=== PATIENT | male | born 1985 | race Caucasian/White ===

== ENCOUNTER 2018-03-14 13:42 | Inpatient (IN) | payer SELFPAY ==
--- NOTE | 2018-03-14 13:46 | PDOC ---
History of Present Illness - General History Source: Patient, Significant Other Exam Limitations: No Limitations - History of Present Illness Initial Comments: 03/14/18 14:24 The patient is a 33 year old female with no significant PMH who presents to the emergency department with shortness of breath, fast heart rate, and irregular rhythm with unspecified onset. The patient reports experiencing shortness of breath with associated diaphoresis yesterday night while lying down. He reports he went to Dr. Jorge Schmitt office this morning for evaluation and was told his heart rate was in the 150s and had new atrial fibrillation rhythm. As per Dr. Jorge Trammell, the patient was given beta blockers in the office. The patient notes he had the flu with associated fever about 2 weeks ago. The patient denies cardiac disease history. He denies sick contacts or recent travel. He denies recent dieting or nutritional supplements. The patient denies chest pain, headache and dizziness. Denies fever, chills, nausea, vomit, diarrhea and constipation. Denies dysuria, frequency, urgency and hematuria. Allergies: NKA Past surgical history: None reported. Social history: No reported cigarette, alcohol, or drug use. PCP: Dr. Jorge Trammell Cardio: Dr. iDng <Cody Molina - Last Filed: 03/14/18 14:24> <Miranda Mendoza - Last Filed: 03/14/18 17:37> - General Stated Complaint: Irregular Heart Beat Time Seen by Provider: 03/14/18 13:46 Past History <Cody Molina - Last Filed: 03/14/18 14:24> <Miranda Mendoza - Last Filed: 03/14/18 17:37> - Past Medical History Allergies/Adverse Reactions: Allergies Allergy/AdvReac Type Severity Reaction Status Date / Time No Known Allergies Allergy Verified 03/14/18 14:04 Home Medications: Ambulatory Orders NK [No Known Home Medication] 03/14/18 Review of Systems - Review of Systems Able to Perform ROS?: Yes Comments:: 03/14/18 14:24 GENERAL/CONSTITUTIONAL: (+) Diaphoresis. No fever or chills. No weakness. HEAD, EYES, EARS, NOSE AND THROAT: No change in vision. No ear pain or discharge. No sore throat. CARDIOVASCULAR: (+) Increased heart rate (+) Irregular rhythm. (+) Shortness of breath. No chest pain. RESPIRATORY: No cough, wheezing, or hemoptysis. GASTROINTESTINAL: No nausea, vomiting, diarrhea or constipation. GENITOURINARY: No dysuria, frequency, or change in urination. MUSCULOSKELETAL: No joint or muscle swelling or pain. No neck or back pain. SKIN: No rash NEUROLOGIC: No headache, vertigo, loss of consciousness, or change in strength/ sensation. ENDOCRINE: No increased thirst. No abnormal weight change. HEMATOLOGIC/LYMPHATIC: No anemia, easy bleeding, or history of blood clots. ALLERGIC/IMMUNOLOGIC: No hives or skin allergy. <Cody Molina - Last Filed: 03/14/18 14:24> *Physical Exam - Vital Signs Last Vital Signs Temp Pulse Resp BP Pulse Ox 98.1 F 150 H 18 149/95 100 03/14/18 14:05 03/14/18 14:05 03/14/18 14:05 03/14/18 14:05 03/14/18 14:05 <Cody Molina - Last Filed: 03/14/18 14:24> - Physical Exam Comments: GENERAL: Awake, alert, and fully oriented, in no acute distress HEAD: No signs of trauma EYES: PERRLA, EOMI, sclera anicteric, conjunctiva clear ENT: Auricles normal inspection, hearing grossly normal, nares patent, oropharynx clear without exudates. Moist mucosa NECK: Normal ROM, supple, no lymphadenopathy, JVD, or masses LUNGS: Breath sounds equal, clear to auscultation bilaterally. No wheezes, and no crackles HEART: Tachycardic, irregularly irregular. Normal S1 and S2, no murmurs, rubs or gallops ABDOMEN: Soft, nontender, normoactive bowel sounds. No guarding, no rebound. No masses EXTREMITIES: Normal range of motion, no edema. No clubbing or cyanosis. No cords, erythema, or tenderness NEUROLOGICAL: Cranial nerves II through XII grossly intact. Normal speech, normal gait. Motor and sensation intact. SKIN: Warm, diaphoretic, normal turgor, no rashes or lesions noted. <Miranda Mendoza - Last Filed: 03/14/18 17:37> ED Treatment Course - LABORATORY CBC & Chemistry Diagram: 03/14/18 13:52 03/14/18 13:52 - ADDITIONAL ORDERS Additional order review: 03/14/18 13:52 RBC 5.58 MCV 87.0 MCHC 34.5 RDW 14.0 MPV 8.4 Neutrophils % 74.9 Lymphocytes % 15.8 Monocytes % 7.1 Eosinophils % 1.7 Basophils % 0.5 - Medications Given in the ED: ED Medications Discontinued Medications Generic Name Dose Route Start Last Admin Trade Name Ignacio PRN Reason Stop Dose Admin Diltiazem HCl 10 mg 03/14/18 13:50 03/14/18 13:59 Cardizem Injection - IVPUSH 03/14/18 13:51 10 mg ONCE ONE Administration Diltiazem HCl 10 mg 03/14/18 14:11 03/14/18 14:05 Cardizem Injection - IVPUSH 03/14/18 14:12 10 mg ONCE ONE Administration <Cody Molina - Last Filed: 03/14/18 14:24> - LABORATORY CBC & Chemistry Diagram: 03/14/18 13:52 03/14/18 13:52 <Miranda Mendoza - Last Filed: 03/14/18 17:37> Medical Decision Making - Medical Decision Making 03/14/18 15:22 Case d/w Dr. Ding. Recommended IV heparin in addition to the echo I have ordered. Will evaluate patient. Dr. Trammell has been to ED to see patient, admitted to his service. <Miranda Mendoza - Last Filed: 03/14/18 17:37> *DC/Admit/Observation/Transfer - Attestations Scribe Attestion: 03/14/18 14:25 Documentation prepared by Cody Molina, acting as medical parasitologist for Miranda Mendoza MD. <Cody Molina - Last Filed: 03/14/18 14:24> - Discharge Dispostion Admit: Yes <Miranda Mendoza - Last Filed: 03/14/18 17:37> Diagnosis at time of Disposition: Atrial fibrillation Qualifiers: Atrial fibrillation type: unspecified Qualified Code(s): I48.91 - Unspecified atrial fibrillation - Discharge Dispostion Condition at time of disposition: Stable
[2018-03-14] MEDS ORDERED: dilTIAZem HCL 50 MG/10 ML - 10 ML VIAL IVPUSH ONE ×3 (13:50→14:18)
[2018-03-14] MEDS ORDERED: dilTIAZem HCL 125 MG/25 ML - 25 ML VIAL ONE (13:57)
[2018-03-14 14:03] LABS: BASO % 0.5 % (0-2.0); EOS % 1.7 % (0-4.5); HEMATOCRIT 48.5 % (35.4-49); HEMOGLOBIN 16.8 GM/dL (11.7-16.9); LYMPH % 15.8 % (8-40); MCH 30.1 pg (25.7-33.7); MCHC 34.5 g/dl (32.0-35.9); MEAN PLT VOLUME 8.4 fl (7.5-11.1); MONO % 7.1 % (3.8-10.2); NEUT % 74.9 % (42.8-82.8); PLATELET COUNT 209 K/MM3 (134-434); RBC 5.58 M/mm3 (4.00-5.60); WHITE BLOOD COUNT 7.2 K/mm3 (4.0-10.0)
[2018-03-14 14:10] VITALS: BMI 33.1
[2018-03-14 14:21] LABS: INR 1.05 (0.82-1.09); PROTHROMBIN TIME (PATIENT) 11.9 SEC (9.7-13.0)
[2018-03-14] MEDS ORDERED: dilTIAZem HCL 60 MG TABLET (FP) PO ONE (14:22)
[2018-03-14] MEDS ORDERED: dilTIAZem HCL 60 MG TABLET (FP) ONE (14:33)
[2018-03-14 14:36] LABS: ALBUMIN 3.9 g/dl (3.4-5.0); ANION GAP 6 (8-16); BLOOD UREA NITROGEN 16 mg/dL (7-18); CALCIUM 8.9 mg/dL (8.5-10.1); CHLORIDE 109 mmol/L (98-107); CO2 28 mmol/L (21-32); GLUCOSE,RANDOM 96 mg/dL (74-106); POTASSIUM 3.6 mmol/L (3.5-5.1); SODIUM 143 mmol/L (136-145)
[2018-03-14 14:43] LABS: ALK PHOS 76 U/L (45-117); BILIRUBIN,TOTAL 0.7 mg/dL (0.2-1.0); SGOT/AST 34 U/L (15-37); SGPT/ALT 105 U/L (12-78)
--- NOTE | 2018-03-14 14:56 | HP ---
Admitting History and Physical - Admission Chief Complaint: c/o cogh in my office x2 days ago. had flu? 2 wks ago. latoya high afibb echo 20 percent ef? mrAlvin gave asa 325 chewable. bystolic. 5mg stat and sent toer mulu History Source: Patient Limitations to Obtaining History: No Limitations - Past Medical History Cardiovascular: Yes: AFIB - Smoking History Smoking history: Never smoked Have you smoked in the past 12 months: No - Alcohol/Substance Use Hx Alcohol Use: No Home Medications - Allergies Allergies/Adverse Reactions: Allergies Allergy/AdvReac Type Severity Reaction Status Date / Time No Known Allergies Allergy Verified 03/14/18 14:04 Family Disease History - Family Disease History Family History: Unremarkable Review of Systems - Review of Systems Cardiovascular: reports: Palpitations Physical Examination Vital Signs: Vital Signs Temperature 98.1 F 03/14/18 14:05 Pulse Rate 106 H 03/14/18 14:35 Respiratory Rate 20 03/14/18 14:35 Blood Pressure 137/126 03/14/18 14:35 O2 Sat by Pulse Oximetry (%) 100 03/14/18 14:35 Constitutional: Yes: Well Nourished, Obese HENT: Yes: WNL Neck: Yes: WNL Cardiovascular: Yes: Pulse Irregular Respiratory: Yes: WNL, Other ...Rectal Exam: Yes: Deferred Renal/: Yes: WNL Breast(s): Yes: WNL Musculoskeletal: Yes: WNL Extremities: Yes: WNL, Internal Rotation Peripheral Pulses WNL: Yes Integumentary: Yes: WNL Neurological: Yes: WNL Labs: CBC, BMP 03/14/18 13:52 03/14/18 13:52 Problem List - Problems (1) Cardiomyopathy Code(s): I42.9 - CARDIOMYOPATHY, UNSPECIFIED Assessment/Plan luvonex sq salome q 8 hrs card consult 02 n/c echo ? cardiazam ?iv no travelhx
[2018-03-14] MEDS ORDERED: HEPARIN NA (PORCINE) 5,000 UNITS/ML 1ML VIAL IVPUSH ONE (15:19)
[2018-03-14] MEDS ORDERED: HEPARIN NA (PORCINE) 5,000 UNITS/ML 1ML VIAL ONE (15:51)
[2018-03-14] MEDS ORDERED: HEPARIN INFUSION - 25,000 UNITS/500 ML INFUS.BAG IVPB ONE (15:52)
[2018-03-14] MEDS: HEPARIN INFUSION - 25,000 UNITS/500 ML INFUS.BAG IVPB SCH (16:00)
[2018-03-14] MEDS ORDERED: FUROSEMIDE 40 MG/4 ML INJECTABLE VIAL IVPUSH ONE (19:30)
[2018-03-14] MEDS ORDERED: PT OWN MED DRAWER 7, Y5N ONE (20:55)
[2018-03-14] MEDS ORDERED: CARVEDILOL 3.125 MG TABLET (FP) PO SCH (22:00)
--- NOTE | 2018-03-14 22:08 | CONS ---
CARDIOLOGY CONSULTATION DATE OF CONSULTATION: 03/14/2018 REQUESTING PHYSICIAN: Jorge Trammell MD CHIEF COMPLAINTS: 1. History of severe sore throat associated with cough and fever. 2. Shortness of breath. 3. Palpitations. 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 He also was experiencing fever. There were no chills, myalgias, or arthralgias reported. Patient states he took [id number] medications, and the symptoms abated over a few days. Last Wednesday, he started to experience cold sweats, shortness of breath both at rest and with exertion. These symptoms were intermittent, and on lying in bed, he noticed that he had a fast heartbeat and he had a feeling of a rocking sensation. There was no history of lightheadedness, dizziness, presyncope, or syncope. He decided to go out to a store and noticed that he was dyspneic walking 2 blocks. There was no history of chest pain or discomfort. The following day, on Wednesday, he continued to have diaphoresis, especially when he was walking to the train station. No shortness of breath was reported, but when he returned home, he experienced dyspnea on exertion and came home and lay in bed and had recurrence of palpitations and states he could not sleep properly because of rapid heartbeat. The same symptoms continued on Wednesday, and he had a restless night. Denies having orthopnea or paroxysmal nocturnal dyspnea. On Wednesday, he decided to see his primary care physician who advised hospitalization because he was found to be in atrial fibrillation with rapid ventricular response. Patient denies history of hypertension, diabetes mellitus. No history of murmur or rheumatic fever. No history of pedal edema. PAST HISTORY: He has had no known illnesses. SOCIAL HISTORY: He is engaged, has 1 son. 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 Never smoked. Has an occasional drink. There is no history of drug use. FAMILY HISTORY: Father is 61 years of age and is in good health. Mother is 62, had leukemia at the age of 30. He has a brother and a sister who are healthy. ALLERGIES: None known. CURRENT MEDICATION: 1. Heparin as per protocol. 2. Mucinex 1 tablet p.o. b.i.d. 3. Carvedilol 3.125 mg p.o. b.i.d. 4. Piperacillin and tazobactam IV q.8 hours. REVIEW OF SYSTEMS: Constitutional: See history of present illness. There has been a 20-pound weight gain over the last year. HEENT: No history of headaches, diplopia, or blurred vision. No history of epistaxis. Intermittent hoarseness on waking up in the morning. No history of tinnitus or deafness. Cardiovascular: See history of present illness. Respiratory: See history of present illness. No history of hemoptysis. Gastrointestinal: No history of nausea, vomiting, melena, or hematemesis. No history of abdominal pain or discomfort. Denies any change in bowel habits. Neurological: No history of seizures or syncope. No history of focal weakness. Denies having any lightheadedness except when he received intravenous medication for slowing his heartbeat. Genitourinary: No history of dysuria, frequency, hematuria. Endocrine: No history of polyuria or polydipsia. No history of intolerance to cold or warm weather. Musculoskeletal: No history of myalgias or arthralgias. Hematological: No history of anemia, ecchymosis, or bleeding. PHYSICAL EXAMINATION: General: A 33-year-old gentleman who was lying comfortably in bed. There was no pallor, cyanosis, clubbing, or jaundice. Vital Signs: Blood pressure 146/109 mmHg. Pulse was 120 beats per minute and irregularly irregular. Respirations were 18 per minute. Temperature was 98.0 degrees Fahrenheit. Weight was 265 pounds. Oxygen saturation was 97% on room air. Neck: Supple. No jugular venous distention. Carotids were 2+. Upstrokes were normal. No bruits were heard, and no thyromegaly was present. Heart: No heaves or thrills. S1 was variable. S2 was normal. No murmur or gallops were heard. Lungs: Clear on auscultation. Chest: Normal AP diameter. Expansion was symmetrical. Abdomen: Soft, obese, and nontender. No hepatosplenomegaly or palpable masses were felt. Bowel sounds were heard. No bruits were heard. Extremities: No calf tenderness or dependent edema. Femoral pulses were 2+. Dorsalis pedis and posterior tibial pulses could not be palpated. Both feet were cool. X-ray chest: Impression: No acute pathology. CTA of the chest: Impression: There is no evidence of pulmonary embolus within the main pulmonary artery and its proximal branches bilaterally. Minimum bilateral pleural effusions, right more than left. Patchy airspace opacities in the right lung suggestive of pneumonic infiltrates. There are also minimal atelectatic changes in the left posterior costophrenic angle that may represent infiltrates. LABORATORY DATA: CBC: WBC count 7200, hemoglobin 16.8 g/dL, platelet count 209,000. Normal differential. Chemistry: Sodium 143, potassium 3.6, chloride 109, CO2 of 28 mmol/L. BUN 16, creatinine 1.0. CK 59. Troponin-I less than 0.03. BNP is not available. IMPRESSION: 1. New-onset atrial fibrillation, duration is uncertain, with rapid ventricular response. 2. Exertional dyspnea, etiology: A. Secondary to left ventricular failure precipitated by rapid ventricular response. B. Secondary to pneumonia. 3. Cardiomyopathy needs . 4. Hypertension. 5. and C-reactive protein. PROGNOSIS: Guarded. Thank you for your referral. Yours sincerely, ORALIA JOSUE M.D. [id number]
[2018-03-14] MEDS: METOPROLOL TARTRATE 25 MG TABLET (FP) PO SCH (23:02)
[2018-03-14] MEDS: guaiFENesin/D-METHORPHAN HB 1 EACH TAB.ER.12H PO SCH (23:03)
[2018-03-14] MEDS ORDERED: HEPARIN NA (PORCINE) 5,000 UNITS/ML 1ML VIAL IVPUSH PRN ×2 (23:08)
[2018-03-15] MEDS ORDERED: PIPERACILLIN/TAZOBACTAM 3.375 GM VIAL IVPB ONE ×3 (00:57→17:48)
[2018-03-15] MEDS ORDERED: PIPERACILLIN/TAZOB 3.375 GM 3.375 GM in DEXTROSE 5%-WATER - 50 ML IVPB SCH (02:00)
[2018-03-15] MEDS: PIPERACILLIN/TAZOB 3.375 GM 3.375 GM in DEXTROSE 5%-WATER - 50 ML IVPB SCH ×4 (02:40→17:50)
[2018-03-15] MEDS ORDERED: DEXTROSE 5%-WATER - 50 ML IVPB ONE ×2 (07:41→17:48)
[2018-03-15] MEDS ORDERED: PT OWN MED DRAWER 7, Y5N ONE ×3 (07:41→22:08)
[2018-03-15] MEDS: guaiFENesin/D-METHORPHAN HB 1 EACH TAB.ER.12H PO SCH ×3 (07:45→22:10)
[2018-03-15] MEDS: METOPROLOL TARTRATE 25 MG TABLET (FP) PO SCH ×2 (07:45→09:23)
--- NOTE | 2018-03-15 10:06 | EKG ---
Test Reason : Blood Pressure : / mmHG Vent. Rate : 115 BPM Atrial Rate : 197 BPM P-R Int : 000 ms QRS Dur : 098 ms QT Int : 362 ms P-R-T Axes : 000 053 050 degrees QTc Int : 500 ms ATRIAL FIBRILLATION WITH RAPID VENTRICULAR RESPONSE ABNORMAL ECG Confirmed by MD Barbara, Raul ([id number]) on 03/15/2018 10:06:23 AM Referred By: Confirmed By:Raul Jimenez MD
--- NOTE | 2018-03-15 10:08 | EKG ---
Test Reason : Blood Pressure : / mmHG Vent. Rate : 150 BPM Atrial Rate : 150 BPM P-R Int : 000 ms QRS Dur : 090 ms QT Int : 256 ms P-R-T Axes : 000 061 054 degrees QTc Int : 404 ms POOR DATA QUALITY, INTERPRETATION MAY BE ADVERSELY AFFECTED ATRIAL FIBRILLATION WITH RAPID VENTRICULAR RESPONSE NONSPECIFIC T WAVE ABNORMALITY ABNORMAL ECG NO PREVIOUS ECGS AVAILABLE Confirmed by MD Barbara, Raul ([id number]) on 03/15/2018 10:07:39 AM Referred By: Confirmed By:Raul Jimenez MD
--- NOTE | 2018-03-15 10:55 | PN ---
Progress Note, Physician Chief Complaint: comfortable vss - Current Medication List Current Medications: Active Medications Guaifenesin (Mucinex Dm -) 1 tablet PO BID [facility] Last Admin: 03/15/18 09:23 Dose: Not Given Heparin Sodium (Porcine) (Heparin -) 5,000 unit IVPUSH PRN PRN PRN Reason: LESS THAN 40 Last Admin: 03/14/18 23:11 Dose: 5,000 unit Heparin Sodium (Porcine) (Heparin -) 1,000 unit IVPUSH PRN PRN PRN Reason: APPT 40-49 Heparin Sodium/Dextrose (Heparin Infusion -) 25,000 units in 500 mls @ 20 mls/ hr IVPB TITR BALJIT; 1,000 UNITS/HR PRN Reason: Protocol Last Titration: 03/14/18 23:03 Dose: 1,150 units/hr, 23 mls/hr Piperacillin Sod/Tazobactam (Sod 3.375 gm/ Dextrose) 50 mls @ 100 mls/hr IVPB Q8H-IV BALJIT PRN Reason: Protocol Last Admin: 03/15/18 09:24 Dose: Not Given Metoprolol Tartrate (Lopressor -) 25 mg PO BID [facility] Last Admin: 03/15/18 09:23 Dose: Not Given - Objective Vital Signs: Vital Signs Temperature 97.8 F 03/15/18 02:00 Pulse Rate 88 03/15/18 02:00 Respiratory Rate 20 03/15/18 02:00 Blood Pressure 136/83 03/15/18 02:00 O2 Sat by Pulse Oximetry (%) 97 03/14/18 22:00 Constitutional: Yes: Well Nourished, No Distress Eyes: Yes: WNL HENT: Yes: WNL Neck: Yes: WNL Cardiovascular: Yes: Pulse Irregular Gastrointestinal: Yes: WNL ...Rectal Exam: Yes: Deferred Genitourinary: Yes: WNL Breast(s): Yes: WNL Musculoskeletal: Yes: WNL Extremities: Yes: WNL Edema: No Peripheral Pulses WNL: Yes Integumentary: Yes: WNL Neurological: Yes: WNL ...Motor Strength: WNL Psychiatric: Yes: WNL Labs: CBC, BMP 03/14/18 13:52 03/14/18 13:52 INR, PTT INR 1.05 (0.82-1.09) 03/14/18 13:52 Problem List - Problems (1) Cardiomyopathy Code(s): I42.9 - CARDIOMYOPATHY, UNSPECIFIED Assessment/Plan globlehypokinesia bnp high cont betablockers ? card cath at [facility]? stress test ? cardv cath at [facility]???
--- NOTE | 2018-03-15 11:37 | PN ---
Progress Note (short form) - Note Progress Note: PULMONARY CONSULTATION DICTATED 03/15/18 IMP DYSPNEA CHF , SECONDARY MODERATE GLOBAL HYPOKINESIA,LV DYSFUNCTION SECONDARY TO RAPID AFIB ? VIRAL CARDIOMYOPATHY,? ISCHEMIC,RAPID AFIB NEW ONSET AFIB PATCHY PARENCHYMAL INFILTRATES ? INFECTIOUS, INFLAMMATORY?, CHF PLAN O2 RATE CONTROL ABX ESR CULTURES DR MASTERSON Problem List - Problems (1) Atrial fibrillation Code(s): I48.91 - UNSPECIFIED ATRIAL FIBRILLATION Qualifiers: Atrial fibrillation type: unspecified Qualified Code(s): I48.91 - Unspecified atrial fibrillation (2) Cardiomyopathy Code(s): I42.9 - CARDIOMYOPATHY, UNSPECIFIED (3) Dyspnea Code(s): R06.00 - DYSPNEA, UNSPECIFIED
--- NOTE | 2018-03-15 12:41 | CONS ---
PULMONARY CONSULTATION DATE OF CONSULTATION: 03/15/2018 REFERRING PHYSICIAN: Jorge Trammell MD The patient is a 33-year-old white male without any significant past medical history, who is a nonsmoker, admitted to [facility] with complaint of increasing shortness of breath, dyspnea on exertion, and orthopnea. Patient states approximately 2 weeks ago he started developing a sore throat and URI symptoms, associated with a cough, initially nonproductive, then turned yellowish. He also had fevers and chills. Initially, those symptoms improved, but over the past few days though, he has started noticing increasing shortness of breath and dyspnea on exertion. His symptoms continued to worsen, at which time he presented to the emergency room. Of note is on Wednesday prior to admission, he started noticing some palpitations. He states that he is unable to sleep at night secondary to severe orthopnea. He denied any chest pains or nausea, vomiting, or diaphoresis. He presented to the emergency room with the above. In the ER, he was noted to be in atrial fibrillation with rapid ventricular response. He was transferred up to the telemetry unit for further management. He was started on heparin as well as antibiotic therapy. He denies any recent travel. There is no history of DVT or PE in the past. Of note is he underwent a CTA of the chest which revealed no evidence of pulmonary emboli with small bilateral pleural effusions and some mild patchy ground glass infiltrates. PAST MEDICAL HISTORY: Again is unremarkable. SOCIAL HISTORY: Occasional EtOH. Born in [place], moved to the [facility] 11 years ago. 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 Unsure whether or not he is exposed to chemicals or fumes. FAMILY HISTORY: Father's age 61, healthy. Mother: A history of leukemia. He has 2 siblings, alive and well. REVIEW OF SYSTEMS: Positive orthopnea. Positive dyspnea. Positive palpitations. No chest pain. No palpitations. Positive mild cough. No abdominal pain. No fevers. No weight loss. No night sweats. No hemoptysis. No lower extremity edema. PHYSICAL EXAMINATION: General: The patient is a well-developed, well-nourished male, awake, alert, in no acute distress. Vital Signs: He is currently afebrile. Blood pressure is 136/83. Respiratory rate is 20. O2 saturation is 97% on room air. Heart rate is 88 and irregular. HEENT: Normocephalic, atraumatic. Neck: Supple. Heart: Irregularly irregular. S1, S2. Chest: Clear. Abdomen: Soft. Bowel sounds are positive. Extremities: No cyanosis or edema. LABORATORY DATA: BUN is 16, creatinine 1.0. BNP is 1021. Troponin is normal. TSH 2.31. PTT is 40. WBC is 7.2, hemoglobin 16.8, hematocrit 48.5, with a platelet count of 209,000. Chest CT reveals no evidence of pulmonary embolism. There is patchy airspace opacity in the right lung. Echocardiogram reveals reduced LV function with [id number] global hypokinesis with ejection fraction 40% to 45%. No evidence of valvular abnormalities. Normal pulmonary artery pressure. IMPRESSION: 1. Congestive heart failure, etiology to be determined, possibly secondary to rate control with rapid atrial fibrillation. Rule out possible viral cardiomyopathy. 2. Patchy infiltrates in right lung, likely inflammatory, cannot exclude possible infectious. 3. Rapid atrial fibrillation. PLAN: Rate control as per Cardiology, supplemental O2, continue anticoagulation. Obtain sedimentation rate, cultures. Also, obtain ESR. Thank you. Will follow closely with you. BEA MASTERSON M.D. HUAN/[id number]
--- NOTE | 2018-03-15 12:47 | CON.CARD ---
Consult Consult Specialty:: Cardiology Referred by:: Jorge Trammell Reason for Consultation:: Afib. Systolic CHF - History of Present Illness Chief Complaint: SOB History of Present Illness: 33 year old male with no significant pmhx who presents with sob and afib. Mr. Carrillo felt flu like symptoms 3 or so weeks ago described as runny nose, congestion, chills and sweats, and muscles aches. Symptoms slowly improved over the course of the week but about one week ago he noticed that he was getting sob very easily and than this weekend felt palpitations and unwell. Went to Dr. Trammell's office and found to be in afib with RVR and sent to [facility]. No pnd, orthopnea, or LE edema. No chest pain. No family history of cardiac disease except a grandfather of SD in 60s. No toxic habits. Feels well today. TSH nl EKG: afib with VR 115bpm, no acute st changes CXR: no acute pathology Echocardiogram 03/14/18: mild to moderately decreased LVEF 40-45% with no significant valve disease, nl LV size CT chest: No PE. Minimal b/l pleural effusion. Patchy airspace opacities in right lung suggestive of pneumonic infiltrates. - History Source History Provided By: Patient, Medical Record - Past Medical History Cardio/Vascular: Yes: AFIB - Alcohol/Substance Use Hx Alcohol Use: Yes (OCCASIONAL) - Smoking History Smoking history: Never smoked Have you smoked in the past 12 months: No Home Medications - Allergies Allergies/Adverse Reactions: Allergies Allergy/AdvReac Type Severity Reaction Status Date / Time No Known Allergies Allergy Verified 03/14/18 14:04 - Home Medications Home Medications: Ambulatory Orders NK [No Known Home Medication] 03/14/18 Family Disease History - Family Disease History Family Disease History: Heart Disease: Grandparent Vital Signs: Vital Signs Temperature 97.8 F 03/15/18 02:00 Pulse Rate 88 03/15/18 02:00 Respiratory Rate 20 03/15/18 02:00 Blood Pressure 136/83 03/15/18 02:00 O2 Sat by Pulse Oximetry (%) 97 03/14/18 22:00 Constitutional: Yes: No Distress Neck: Yes: Supple Respiratory: Yes: CTA Bilaterally Gastrointestinal: Yes: Normal Bowel Sounds, Soft Cardiovascular: Yes: Tachycardia JVD: No Carotid Bruit: No PMI: Non-Displaced Heart Sounds: Yes: S1, S2 Murmur: No: Systolic Murmur Extremities: Yes: WNL Edema: No - Other Data Labs, Other Data: CBC, BMP 03/14/18 13:52 03/14/18 13:52 INR, PTT INR 1.05 (0.82-1.09) 03/14/18 13:52 Troponin, BNP 03/14/18 03/14/18 03/14/18 13:52 21:20 21:30 Troponin I < 0.02 < 0.02 B-Natriuretic Peptide 1021.91 H Troponin, BNP 03/14/18 03/14/18 03/14/18 13:52 21:20 21:30 Troponin I < 0.02 < 0.02 B-Natriuretic Peptide 1021.91 H Imaging - Results Chest X-ray: Report Reviewed Cat Scan: Report Reviewed EKG: Image Reviewed Problem List - Problems (1) Atrial fibrillation Code(s): I48.91 - UNSPECIFIED ATRIAL FIBRILLATION Qualifiers: Atrial fibrillation type: unspecified Qualified Code(s): I48.91 - Unspecified atrial fibrillation (2) Cardiomyopathy Code(s): I42.9 - CARDIOMYOPATHY, UNSPECIFIED Assessment/Plan 33 year old male with no significant pmhx who presents with sob and afib. Mr. Carrillo felt flu like symptoms 3 or so weeks ago described as runny nose, congestion, chills and sweats, and muscles aches. Symptoms slowly improved over the course of the week but about one week ago he noticed that he was getting sob very easily and than this weekend felt palpitations and unwell. Went to Dr. Trammell's office and found to be in afib with RVR and sent to [facility]. No pnd, orthopnea, or LE edema. No chest pain. No family history of cardiac disease except a grandfather of SD in 60s. No toxic habits. Feels well today. TSH nl EKG: afib with VR 115bpm, no acute st changes CXR: no acute pathology Echocardiogram 03/14/18: mild to moderately decreased LVEF 40-45% with no significant valve disease, nl LV size CT chest: No PE. Minimal b/l pleural effusion. Patchy airspace opacities in right lung suggestive of pneumonic infiltrates. 1) Afib Would adjust metoprolol dose to 50mg q8 PO Monitor on Tele. Continue on anticoagulation. Can be changed to NOAC instead of heparin drip. Consider apixaban. 2) Systolic CHF Likely tachycardia induced but possible viral. Volume status stable on exam TSH nl 3) ID -question of pna on chest ct with no fever, nl wbc Will clarify with ID. Will plan for RAFAELA/DCCV likely tomorrow. Plan for transfer to [facility].
[2018-03-15] MEDS: METOPROLOL TARTRATE 50 MG TABLET (FP) PO SCH ×2 (14:27→22:08)
--- NOTE | 2018-03-15 14:34 | CON.ID ---
Consult Consult Specialty:: infectious diseases Referred by:: Reason for Consultation:: pneumonia,afib - History of Present Illness Chief Complaint: sob History of Present Illness: 33 year old male with no significant pmhx who presents with sob and afib. patient was diagnosed with flu symptoms couple of weeks back according tot he patient he has been healthy before this episode occurred . patient then started noticing that he was becomg sob very easily and this wednesday he became sob very easily and felt that his heart was pounding and had palpitations he went to the PMDs office and was found to have afib and was send to the hospital for further work up was also found to ahve infiltrate on the ct scan done patient was started on zosyn. the plan is to cardiovert him tonight patient still having sweats and feverish feeling but no temp recorded no smoking,etoh or drugs - History Source History Provided By: Patient Limitations to Obtaining History: No Limitations - Past Medical History Cardio/Vascular: Yes: AFIB - Alcohol/Substance Use Hx Alcohol Use: Yes (OCCASIONAL) - Smoking History Smoking history: Never smoked Have you smoked in the past 12 months: No Home Medications - Allergies Allergies/Adverse Reactions: Allergies Allergy/AdvReac Type Severity Reaction Status Date / Time No Known Allergies Allergy Verified 03/14/18 14:04 - Home Medications Home Medications: Ambulatory Orders NK [No Known Home Medication] 03/14/18 Family Disease History - Family Disease History Family Disease History: Heart Disease: Grandparent Physical Exam Vital Signs: Vital Signs Temperature 97.8 F 03/15/18 02:00 Pulse Rate 88 03/15/18 02:00 Respiratory Rate 20 03/15/18 02:00 Blood Pressure 136/83 03/15/18 02:00 O2 Sat by Pulse Oximetry (%) 97 03/14/18 22:00 Constitutional: Yes: Well Nourished, Calm, Obese Eyes: Yes: Conjunctiva Clear Cardiovascular: Yes: Pulse Irregular. No: Murmur Respiratory: Yes: Regular, CTA Bilaterally Gastrointestinal: Yes: Normal Bowel Sounds, Soft Musculoskeletal: Yes: WNL Extremities: Yes: WNL Neurological: Yes: Alert, Oriented Psychiatric: Yes: Alert, Oriented Labs: CBC, BMP 03/14/18 13:52 03/14/18 13:52 Imaging - Results Cat Scan: Report Reviewed, Image Reviewed Assessment/Plan this patient with new onset afib plan for cardioversion with infiltrate on the lung post flu probably carrying over from the flu but since patient is still having sweats and for invasive procedure will continue abx untill at least the procedure is done Problem List - Problems (1) Atrial fibrillation Code(s): I48.91 - UNSPECIFIED ATRIAL FIBRILLATION Qualifiers: Atrial fibrillation type: unspecified Qualified Code(s): I48.91 - Unspecified atrial fibrillation (2) Cardiomyopathy Code(s): I42.9 - CARDIOMYOPATHY, UNSPECIFIED (3) Dyspnea Code(s): R06.00 - DYSPNEA, UNSPECIFIED 4 infiltrate on the lungs plan continue current mgmt continue monitoring rest as per cardio and primary team
[2018-03-15] MEDS: HEPARIN INFUSION - 25,000 UNITS/500 ML INFUS.BAG IVPB SCH (17:51)
[2018-03-15 19:13] VITALS: BP 139/94; PULSE 108; TEMP 98.8
== END 2018-03-15 22:00 | disposition short-term general hospital (02) | DRG 309 ==
LOC: JER 13:42 → JERBED 14:32 → J4W 17:40 → J8W 03-15 21:01 → J4W 03-15 21:15
PROVIDERS: ADMIT Family Medicine; ATTEND Family Medicine
DX: I48.91 Unspecified atrial fibrillation (principal); I50.20 Unspecified systolic (congestive) heart failure; I42.9 Cardiomyopathy, unspecified; I11.0 Hypertensive heart disease with heart failure; R00.0 Tachycardia, unspecified
CPT/HCPCS: 36415; 71045-TC-FY; 71275-TC; 80053; 82550; 83880; 84443; 84484; 85025; 85610; 85651; 85730; 86140; 87040; 93005; 93010; 93306-TC; 99285-25; J1644